=== PATIENT | female | born 1990 | race Caucasian/White ===

== ENCOUNTER 2017-04-18 12:27 | Emergency (ER) | payer OTHER | END 2017-04-18 13:34 | disposition left against medical advice (07) | LOC: FER 12:27 | DX: R21 Rash and other nonspecific skin eruption (principal); Z53.8 Procedure and treatment not carried out for other reasons ==

== ENCOUNTER 2017-04-18 15:07 | Emergency (ER) | payer OTHER ==
[2017-04-18 17:12] LABS: BILIRUBIN NEGATIVE (NEGATIVE); BLOOD 3+ Ery/uL (NEGATIVE); CLARITY CLEAR (CLEAR); COLOR YELLOW (YELLOW); GLUCOSE (U) NORMAL (NORMAL); KETONE (U) 1+ (SMALL) mg/dL (NEGATIVE); LEUKOCYTES NEGATIVE Leu/uL (NEGATIVE); NITRITE NEGATIVE (NEGATIVE); PROTEIN TRACE (LOW) mg/dL (NEGATIVE); SPECIFIC GRAVITY >=1.030 (1.001-1.030); UROBILINOGEN 0.2 mg/dL (0.2-1.0); pH 5.5 (5.0-9.0)
[2017-04-18 17:20] LABS: BACTERIA TRACE; URINARY RBC TNTC
== END 2017-04-18 17:25 | disposition home or self-care (01) ==
LOC: FER 15:07
PROVIDERS: Emergency Medicine
DX: O9A.219 Injury, poisoning and certain other consequences of external causes complicating pregnancy, unspecified trimester (principal); T78.40XA Allergy, unspecified, initial encounter; Z88.5 Allergy status to narcotic agent; Z3A.00 Weeks of gestation of pregnancy not specified
CPT/HCPCS: 81001

== ENCOUNTER → 2022-03-26 | Day surgery (SDC) | payer OTHER ==
[~2022-03-26] VITALS: Ht 157.5 cm; Wt 108.9 kg
[~2022-03-26] MED LIST: FLUOXETINE HCL60 MG PO; MOTRIN600 MG PO; MYCOLOG15 GM TOP; PERCOCET 5-3251 EACH PO; VITAMIN D310 MC2 PO
[2022-03-26 08:35] LABS: HCG (URINE) SCREEN NEGATIVE (NEGATIVE)
[2022-03-26 08:52] LABS: HCT 40.2 % (37.0-47.0); HGB 13.4 g/dl (12.5-16.0); MCH 31.3 pg (25.0-31.0); MCHC 33.3 g/dL (32.0-36.0); MCV 93.9 fL (78.0-100.0); MPV 9.7 fL (6.0-9.5); RBC 4.28 M/uL (4.20-5.40); RDW 12.7 % (11.5-14.0); WBC 6.3 K/uL (4.0-10.5)
== END | disposition home or self-care (01) ==
LOC: FAS 07:50
PROVIDERS: Obstetrics & Gynecology
DX: N83.8 Other noninflammatory disorders of ovary, fallopian tube and broad ligament (principal); F41.9 Anxiety disorder, unspecified; F32.A Depression, unspecified; Z80.41 Family history of malignant neoplasm of ovary; Z80.3 Family history of malignant neoplasm of breast; Z88.5 Allergy status to narcotic agent; Z91.040 Latex allergy status
CPT/HCPCS: 36415; 84703; 86850; 86900; 86901; 93005; J1100; J1170; J1885; J2250; J2405; J2704; J3010; J7120